=== PATIENT | male | born 1995 | race Caucasian/White ===

== ENCOUNTER 2022-08-20 19:06 | Emergency (ER) | payer SELFPAY ==
[2022-08-20] MEDS ORDERED: Sodium Chloride 0.9% 1,000 ML IV ONE (20:08)
== END 2022-08-20 20:25 | disposition left against medical advice (07) ==
LOC: JD.ED 19:06
DX: G40.909 Epilepsy, unspecified, not intractable, without status epilepticus (principal)
CPT/HCPCS: 99284